=== PATIENT | female | born 1975 | race Caucasian/White ===

== ENCOUNTER → 2016-09-10 | Outpatient (CLI) | payer BC, OTHER ==
[2016-09-10 13:31] LABS: BENZODIAZEPINE, URINE NEG (NEG); COCAINE,URINE NEG (NEG); PHENCYCLIDINE, URINE NEG (NEG)
[2016-09-14 12:29] LABS: CHLAMYDIA TRACH RNA*** NOT DETECTED (NOT DETECTED); GC (NEIS GONORRHOEAE)RNA** NOT DETECTED (NOT DETECTED)
[2016-09-15 18:28] LABS: HERPES SIMPLEX AB IGG-2 < 0.90 INDEX (< 0.90); HSV1 AB IGM Negative (Negative); HSV2 AB IGM Negative (Negative)
== END | disposition home or self-care (01) ==
LOC: C.LABPBG 07:54
PROVIDERS: ATTEND Nurse Practitioner Adult Health
DX: Z20.2 Contact with and (suspected) exposure to infections with a predominantly sexual mode of transmission (principal); F41.1 Generalized anxiety disorder

== ENCOUNTER 2017-06-14 17:43 | Emergency (ER) | payer BC ==
[~2017-06-14] VITALS: Ht 167.6 cm; Wt 109.6 kg
[2017-06-14 17:47] VITALS: TEMP 36.7; Ht 167.6 cm; Wt 109.6 kg
[2017-06-14 17:52] VITALS: O2SAT 97
--- NOTE | 2017-06-14 18:04 | EMERGENCY ROOM VISIT NOTE ---
History Report prepared by Marry: Maynor Ocampo Under the Supervision of: Dr. Que Castaneda M.D. First contact with patient: 17:50 Chief Complaint: CHEST PAIN Stated Complaint: CHEST PAIN, ELEVATED BP History of Present Illness The patient is a 41 year old white female with a past medical history of asthma and HTN who presents to the ED with a cc of intermittent chest pain beginning 2 weeks ago. Positive shortness of breath. Negative nausea, vomiting, cough, fevers, chills, urinary symptoms, bowel movement changes, worsened leg swelling , recent prolonged traveling. She states that she initially thought the pain was reflux, but the chest pain has persisted. The patient notes that the pain is intermittently sharp, and pressing on the middle of her chest sometimes makes the pain better. She says that position does not change her pain. She notes that she has had some shortness of breath with the pain, and this shortness of breath is different than her asthma. The patient adds that her blood pressure was elevated at work earlier today, but she says that work has been stressing her recently and the elevated blood pressure may be due to " panic attacks". She notes that she does take blood pressure medication, and denies any recent medication changes. The patient does have a family history of pacemakers. She does take control. Source of History: patient Onset: 2 weeks ago Position: chest Quality: sharp Timing: intermittent Modifying Factors (Relieving): other (pressing on chest) Associated Symptoms: + SOB, No fevers, No chills, No cough, No nausea, No vomiting, No urinary symptoms (or bowel movement changes) Note: Positive elevated blood pressure. Negative worsened leg swelling. Review of Systems See HPI for pertinent positives and negatives. A total of ten systems were reviewed and were otherwise negative. Past Medical & Surgical Medical Problems: (1) Asthma (2) HTN (hypertension) Family History No pertinent family history Social History Smoking Status: Never Smoker Smokeless Tobacco Use: No Alcohol Use: none Drug Use: none Housing Status: lives with family Current/Historical Medications Scheduled Control Pills ( Control Pills), 1 TAB PO HS Bupropion Hcl (Wellbutrin Xl), 300 MG PO QAM Gabapentin (Neurontin), 100 MG PO HS Hydrochlorothiazide (Hctz), 25 MG PO QAM Hydroxyzine Pamoate (Vistaril), 1 CAP PO BID Losartan Potassium (Cozaar), 100 MG PO QAM Montelukast Sodium (Singulair), 10 MG PO HS Zolpidem Tartrate (Ambien), 5 MG PO HS Scheduled PRN Lorazepam (Ativan), 0.5 MG PO DAILY PRN for Anxiety Allergies Coded Allergies: Lamotrigine (Verified Allergy, Unknown, rash, 06/14/17) Tetanus Toxoid (Verified Allergy, Unknown, Red ring at injection site, ) Lisinopril (Verified Adverse Reaction, Unknown, Cough, 06/14/17) Physical Exam Vital Signs Date Time Temp Pulse Resp B/P (MAP) Pulse Ox O2 Delivery O2 Flow Rate FiO2 06/14/17 18:43 66 17 99 06/14/17 18:31 143/86 06/14/17 18:13 70 18 99 06/14/17 18:02 134/89 06/14/17 18:02 Room Air 06/14/17 17:57 74 06/14/17 17:54 146/87 06/14/17 17:52 97 Room Air 06/14/17 17:47 36.7 76 20 168/113 99 Room Air Physical Exam GENERAL: Awake, alert, well-appearing, NAD HENT: Normocephalic, atraumatic. EYES: Normal conjunctiva. Sclera non-icteric. NECK: Supple. No nuchal rigidity. FROM. RESPIRATORY: CTAB, no rhonchi, wheezing, crackles CARDIAC: RRR, no MRG. ABDOMEN: Soft, NTND, BS+ MSK: Chest pain improves with palpation, no LE edema NEURO: GCS 15, CN 2-12 intact, moves all 4s on command SKIN: No rash or jaundice noted. Medical Decision & Procedures ER Provider Diagnostic Interpretation: X-ray: Per my interpretation, radiologist review. CHEST ONE VIEW PORTABLE CLINICAL HISTORY: Chest pain. Elevated blood pressure. COMPARISON STUDY: No previous studies for comparison. FINDINGS: There is apparent moderate elevation of the right hemidiaphragm. There is no consolidation or evidence for pulmonary edema. Cardiac size is normal. Mediastinal contours are normal. There is no pneumothorax or pleural effusion. IMPRESSION: 1. Apparent moderate elevation of the right hemidiaphragm. 2. No acute cardiopulmonary findings. Electronically signed by: Jose Gonzalez M.D. 06/14/2017 6:40 PM Dictated Date/Time: 06/14/2017 6:38 PM Laboratory Results 06/14/17 18:11 Red Blood Count 4.60, Mean Corpuscular Volume 88.0, Mean Corpuscular Hemoglobin 30.2, Mean Corpuscular Hemoglobin Concent 34.3, Mean Platelet Volume 9.3, Neutrophils (%) (Auto) 62.1, Lymphocytes (%) (Auto) 30.4, Monocytes (%) (Auto) 5.5, Eosinophils (%) (Auto) 1.4, Basophils (%) (Auto) 0.5, Neutrophils # (Auto) 5.28, Lymphocytes # (Auto) 2.59, Monocytes # (Auto) 0.47, Eosinophils # (Auto) 0.12, Basophils # (Auto) 0.04 06/14/17 18:11 Test 06/14/17 18:11 White Blood Count 8.51 K/uL (4.8-10.8) Red Blood Count 4.60 M/uL (4.2-5.4) Hemoglobin 13.9 g/dL (12.0-16.0) Hematocrit 40.5 % (37-47) Mean Corpuscular Volume 88.0 fL (80-100) Mean Corpuscular Hemoglobin 30.2 pg (25-34) Mean Corpuscular Hemoglobin Concent 34.3 g/dl (32-36) Platelet Count 311 K/uL (130-400) Mean Platelet Volume 9.3 fL (7.4-10.4) Neutrophils (%) (Auto) 62.1 % Lymphocytes (%) (Auto) 30.4 % Monocytes (%) (Auto) 5.5 % Eosinophils (%) (Auto) 1.4 % Basophils (%) (Auto) 0.5 % Neutrophils # (Auto) 5.28 K/uL (1.4-6.5) Lymphocytes # (Auto) 2.59 K/uL (1.2-3.4) Monocytes # (Auto) 0.47 K/uL (0.11-0.59) Eosinophils # (Auto) 0.12 K/uL (0-0.5) Basophils # (Auto) 0.04 K/uL (0-0.2) RDW Standard Deviation 40.9 fL (36.4-46.3) RDW Coefficient of Variation 12.7 % (11.5-14.5) Immature Granulocyte % (Auto) 0.1 % Immature Granulocyte # (Auto) 0.01 K/uL (0.00-0.02) Prothrombin Time 9.6 SECONDS (9.0-12.0) Prothromb Time International Ratio 0.9 (0.9-1.1) Activated Partial Thromboplast Time 26.6 SECONDS (21.0-31.0) Partial Thromboplastin Ratio 1.0 Anion Gap 9.0 mmol/L (3-11) Est Creatinine Clear Calc Drug Dose 118.6 ml/min Estimated GFR () 108.5 Estimated GFR (Non- 93.6 BUN/Creatinine Ratio 12.9 (10-20) Calcium Level 8.8 mg/dl (8.5-10.1) Total Bilirubin 0.5 mg/dl (0.2-1) Direct Bilirubin 0.1 mg/dl (0-0.2) Aspartate Amino Transf (AST/SGOT) 10 U/L (15-37) Alanine Aminotransferase (ALT/SGPT) 17 U/L (12-78) Alkaline Phosphatase 80 U/L (45-117) Troponin I < 0.015 ng/ml (0-0.045) Pro-B-Type Natriuretic Peptide 31 pg/ml (0-450) Total Protein 7.4 gm/dl (6.4-8.2) Albumin 3.3 gm/dl (3.4-5.0) Lipase 106 U/L (73-393) Laboratory results reviewed by me Medications Administered Medications (Trade) Dose Ordered Sig/Maris Route Start Time Stop Time Status Last Admin Dose Admin Ketorolac Tromethamine (Toradol Inj) 30 mg NOW STAT IV 06/14/17 18:18 06/14/17 18:20 DC 06/14/17 18:25 30 MG Lorazepam (Ativan Tab) 0.5 mg NOW STAT PO 06/14/17 18:18 06/14/17 18:20 DC 06/14/17 18:25 0.5 MG ECG Per My Interpretation Indication: chest pain Rate (beats per minute): 68 Rhythm: normal sinus Findings: T-wave inversion (single isolated lead 3), other (normal intervals, normal axis, no other STS changes or TWI) ED Course 1800: The patient was evaluated in room A10. A complete history and physical exam was performed. 1954: I reevaluated the patient and she is resting comfortably. Discussed results and discharge instructions: she verbalized understanding and agreement. The patient is ready for discharge. Medical Decision The patient is a 41 year old white female with a past medical history of asthma and HTN who presents to the ED with a cc of intermittent chest pain beginning 2 weeks ago. Positive shortness of breath. Negative nausea, vomiting, cough, fevers, chills, urinary symptoms, bowel movement changes, worsened leg swelling , recent prolonged traveling. Differential diagnosis: Etiologies such as cardiac ischemia, aortic dissection, pulmonary embolism, pneumonia, pneumothorax, musculoskeletal, infections, pericarditis, myocarditis , esophageal rupture, gastrointestinal, as well as others were entertained. Patient was seen and evaluated at the bedside. Patient was complaining some mild chest pain. Patient states that it is central and nonradiating. Patient denies any prior history of DVT or PE. Patient denies any recent car or plane travel. Patient is a non-smoker. Patient does use oral contraceptives. Patient denies infectious symptoms. Patient denies any exertional chest pain or shortness of breath. Patient denies any hemoptysis. Patient did have blood work, EKG, troponin, chest x-ray. Patient chest x-ray clear. Patient's EKG nonischemic with a negative troponin. Likely this less likely to be ACS. Patient does have a heart score less than 4. Patient is PE RC of 1 the patient has a well score of 0 was likely to be PE. I discussed all findings with the patient. Patient is agreeable to the plan of care. Patient was given strict follow-up, discharge, and return precautions. All questions were answered. Patient was deemed suitable for outpatient follow-up at this time. Patient agreed with the plan of care and was safely discharged home. Medication Reconcilliation Current Medication List: was personally reviewed by me Blood Pressure Screening Patient's blood pressure: Elevated blood pressure Blood pressure disposition: Referred to PCP Impression Primary Impression: Chest pain Additional Impression: Hypokalemia Scribe Attestation The scribe's documentation has been prepared under my direction and personally reviewed by me in its entirety. I confirm that the note above accurately reflects all work, treatment, procedures, and medical decision making performed by me. Departure Information Dispostion Home / Self-Care Prescriptions Hydroxyzine Pamoate (VISTARIL) 25 Mg Cap 1 CAP PO BID for 12 Days, #24 CAP 1 Refill Prov: Que Castaneda M.D. 06/14/17 Referrals Anali Thomas DO (PCP) Patient Instructions Chest Pain - [facility], My [facility] Additional Instructions Please return to the emergency department if you have worsening or recurrent symptoms not amenable to at-home treatment. Please call for a follow-up appointment with her primary care physician. Please take your medications as prescribed. If you have other concerns and/or complaints please feel free to also call your primary care physician's office or return the ED for further evaluation, management, and treatment. You received narcotic or benzodiazepene medication while in the emergency room today. This is an addictive medication that may cause drowziness as well as constipation. Do not drive, operate heavy machinery, or drink alcohol under the influence of this medication. You may take 600 mg Ibuprofen every 6 hours as needed for pain with food for no more than 2 consecutive days. You may take tylenol 1000 mg every 6 hours as needed for pain. You may take motrin and tylenol separately or at the same time. Take your medications as prescribed. You have been examined and treated today on an emergency basis only. This is not a substitute for, or an effort to provide, complete comprehensive medical care. It is impossible to recognize and treat all injuries or illnesses in a single emergency department visit. It is therefore important that you follow up closely with [facility], your PCP, and/or your specialist(s). Call as soon as possible for an appointment. Thank you for your time and consideration. I look forward to speaking with you again soon. Please don't hesitate to call us if you have any questions. Problem Qualifiers Primary Impression: Chest pain Chest pain type: unspecified Qualified Codes: R07.9 - Chest pain, unspecified
[2017-06-14] MEDS ORDERED: KETOROLAC TROMETHAMINE 30 MG/ML VIAL IV STA (18:18)
[2017-06-14] MEDS ORDERED: LORAZEPAM 0.5 MG TAB PO STA (18:18)
[2017-06-14] MEDS ORDERED: LOSA100T65 PO (18:31)
[2017-06-14] MEDS ORDERED: GABA-112 PO (18:31)
[2017-06-14] MEDS ORDERED: BUPRTAB51 PO (18:31)
[2017-06-14] MEDS ORDERED: MONT1TAB3 PO (18:31)
[2017-06-14] MEDS ORDERED: LORA-741 PO (18:31)
[2017-06-14] MEDS ORDERED: HYDR25TA4 PO (18:31)
[2017-06-14] MEDS ORDERED: ZOLP5TAB PO (18:31)
[2017-06-14] MEDS ORDERED: BCPILLS PO (18:31)
[2017-06-14 18:33] LABS: BASO % 0.5 %; BASO ABS # 0.04 K/uL (0-0.2); EOS % 1.4 %; EOS ABS # 0.12 K/uL (0-0.5); HEMATOCRIT 40.5 % (37-47); HEMOGLOBIN 13.9 g/dL (12.0-16.0); IG# 0.01 K/uL (0.00-0.02); LYMPH % 30.4 %; LYMPH ABS # 2.59 K/uL (1.2-3.4); MEAN CORPUSCULAR HEMOGLOBIN 30.2 pg (25-34); MEAN CORPUSCULAR HGB CONC 34.3 g/dl (32-36); MEAN PLATELET VOLUME 9.3 fL (7.4-10.4); MONO % 5.5 %; MONO ABS # 0.47 K/uL (0.11-0.59); NEUT % 62.1 %; NEUT ABS # 5.28 K/uL (1.4-6.5); PLATELET COUNT 311 K/uL (130-400); RED CELL DISTRIBUTION WIDTH CV 12.7 % (11.5-14.5); RED CELL DISTRIBUTION WIDTH SD 40.9 fL (36.4-46.3); WHITE BLOOD COUNT 8.51 K/uL (4.8-10.8)
--- NOTE | 2017-06-14 18:41 | DIAGNOSTIC IMAGING REPORT ---
CHEST ONE VIEW PORTABLE CLINICAL HISTORY: Chest pain. Elevated blood pressure. COMPARISON STUDY: No previous studies for comparison. FINDINGS: There is apparent moderate elevation of the right hemidiaphragm. There is no consolidation or evidence for pulmonary edema. Cardiac size is normal. Mediastinal contours are normal. There is no pneumothorax or pleural effusion. IMPRESSION: 1. Apparent moderate elevation of the right hemidiaphragm. 2. No acute cardiopulmonary findings. Electronically signed by: Jose Gonzalez M.D. 06/14/2017 6:40 PM Dictated Date/Time: 06/14/2017 6:38 PM
[2017-06-14 18:43] LABS: INR 0.9 (0.9-1.1); PTT PATIENT 26.6 SECONDS (21.0-31.0)
[2017-06-14 18:51] LABS: ALBUMIN 3.3 gm/dl (3.4-5.0); ALT/SGPT 17 U/L (12-78); AST/SGOT 10 U/L (15-37); BLOOD UREA NITROGEN 10 mg/dl (7-18); CALCIUM 8.8 mg/dl (8.5-10.1); CARBON DIOXIDE 26 mmol/L (21-32); CREATININE 0.79 mg/dl (0.60-1.20); GLUCOSE 93 mg/dl (70-99); LIPASE 106 U/L (73-393); POTASSIUM 3.4 mmol/L (3.5-5.1); SODIUM 137 mmol/L (136-145)
[2017-06-14 18:56] LABS: ALKALINE PHOSPHATASE 80 U/L (45-117); TOTAL PROTEIN 7.4 gm/dl (6.4-8.2)
[2017-06-14] MEDS ORDERED: HYDR25CA PO (20:00)
[2017-06-14 20:14] VITALS: BP 148/90; PULSE 69; O2SAT 99
== END 2017-06-14 20:16 | disposition home or self-care (01) ==
LOC: C.EDB 17:44 → C.EDA 20:16
DX: R07.9 Chest pain, unspecified (principal); E87.6 Hypokalemia; J45.909 Unspecified asthma, uncomplicated; I10 Essential (primary) hypertension; Z79.3 Long term (current) use of hormonal contraceptives; Z79.899 Other long term (current) drug therapy; Z88.7 Allergy status to serum and vaccine; Z88.8 Allergy status to other drugs, medicaments and biological substances

== ENCOUNTER → 2017-06-22 | Outpatient (CLI) | payer BC ==
[~2017-06-22] MED LIST: BCPILLS PO; BUPRTAB51 PO; GABA-112 PO; HYDR25CA PO; HYDR25TA4 PO; LORA-741 PO; LOSA100T65 PO; MONT1TAB3 PO; ZOLP5TAB PO
[2017-06-22 12:18] LABS: HEMATOCRIT 41.5 % (37-47); HEMOGLOBIN 14.4 g/dL (12.0-16.0); MEAN CELL VOLUME 87.9 fL (80-100); MEAN CORPUSCULAR HEMOGLOBIN 30.5 pg (25-34); MEAN CORPUSCULAR HGB CONC 34.7 g/dl (32-36); MEAN PLATELET VOLUME 9.5 fL (7.4-10.4); PLATELET COUNT 339 K/uL (130-400); RED CELL DISTRIBUTION WIDTH CV 12.5 % (11.5-14.5); RED CELL DISTRIBUTION WIDTH SD 40.2 fL (36.4-46.3); WHITE BLOOD COUNT 7.31 K/uL (4.8-10.8)
[2017-06-22 13:01] LABS: BLOOD UREA NITROGEN 11 mg/dl (7-18); CALCIUM 9.2 mg/dl (8.5-10.1); CARBON DIOXIDE 28 mmol/L (21-32); CREATININE 0.71 mg/dl (0.60-1.20); GLUCOSE 96 mg/dl (70-99); SODIUM 138 mmol/L (136-145)
== END | disposition home or self-care (01) ==
LOC: C.LABPBG 10:02
PROVIDERS: ATTEND Family Medicine
DX: R53.83 Other fatigue (principal); E55.9 Vitamin D deficiency, unspecified